=== PATIENT | female | born 1990 | race Caucasian/White ===

== ENCOUNTER 2017-11-20 23:19 | Emergency (ER) | payer OTHER ==
[~2017-11-20] VITALS: Ht 149.9 cm; Wt 54.4 kg
[2017-11-21] MEDS ORDERED: PROBIOTIC & AC1 EACH PO (16:33)
[2017-11-21] MEDS ORDERED: FLAGYL500MG PO (16:33)
[2017-11-21] MEDS ORDERED: CIPRO500 MG PO (16:33)
== END 2017-11-21 17:58 | disposition home or self-care (01) ==
LOC: ER 23:19
DX: K52.9 Noninfective gastroenteritis and colitis, unspecified (principal); E86.0 Dehydration; K21.9 Gastro-esophageal reflux disease without esophagitis; R14.0 Abdominal distension (gaseous)

== ENCOUNTER 2020-01-09 14:46 | Emergency (ER) | payer OTHER ==
[~2020-01-09] VITALS: Ht 149.9 cm; Wt 50.8 kg
[~2020-01-09 14:46] MED LIST: CIPRO500 MG PO; FLAGYL500MG PO; PROBIOTIC & AC1 EACH PO
[2020-01-09] MEDS ORDERED: CLONAZEPAM1 MG (16:05)
[2020-01-09] MEDS ORDERED: ADDERALL 20 MG20 MG (16:05)
[2020-01-09] MEDS ORDERED: LAMOTRIGINE100 MG (16:05)
[2020-01-09] MEDS ORDERED: SERTRALINE20 MG/1 ML (16:06)
== END 2020-01-09 19:47 | disposition home or self-care (01) ==
LOC: ER 14:46
DX: S13.4XXA Sprain of ligaments of cervical spine, initial encounter (principal); S30.0XXA Contusion of lower back and pelvis, initial encounter; V49.9XXA Car occupant (driver) (passenger) injured in unspecified traffic accident, initial encounter; Y93.89 Activity, other specified; Y92.488 Other paved roadways as the place of occurrence of the external cause; Y99.8 Other external cause status